=== PATIENT | female | born 1965 | race African-American/Black ===

== ENCOUNTER → 2017-06-20 | Outpatient (CLI) | payer MEDICAID ==
[~2017-06-20] MED LIST: ZITHROMAX PO
--- NOTE | ~2017-06-20 | EKG ---
PATIENT: RENY MONTALVO UNIT #: [id number] Ventricular Rate: 54 BPM Atrial Rate: 54 BPM P-R Interval: 144 ms QRS Duration: 90 ms Q-T Interval: 398 ms QTC Calculation(Bezet): 377 ms P [place]: 62 degrees Calculated R [place]: 48 degrees Calculated T [place]: 28 degrees Diagnosis Line: Sinus bradycardia Diagnosis Line: Possible Left atrial enlargement Diagnosis Line: RSR' or QR pattern in V1 suggests right Diagnosis Line: ventricular conduction delay Diagnosis Line: Borderline ECG Diagnosis Line: No previous ECGs available Diagnosis Line: Confirmed by BRITTANI PAYNE MD ([id number]) on Diagnosis Line: 06/21/2017 5:04:59 PM INTERPRETING MD: ELMER MCKEON
[2017-06-20 12:26] LABS: MEAN CELL VOLUME 87.2 FL (83-96); MEAN CORPUSCULAR HEMOGLOBIN 30.6 PG (28-34); MEAN CORPUSCULAR HGB CONC 35.1 g/dL (30-36); MEAN PLATELET VOLUME 8.1 FL (6.5-11.5); RED BLOOD COUNT 4.24 X10e (3.90-5.30); RED CELL DISTRIBUTION WIDTH 12.9 % (11.0-15.5); WHITE BLOOD COUNT 5.3 X10e3 (4.0-10.5)
[2017-06-20 13:07] LABS: ALBUMIN SERUM 4.4 g/dL (3.5-5.0); BILIRUBIN,TOTAL 1.5 mg/dL (0.2-2.0); BUN/CREATININE RATIO 21.25; CALCIUM SERUM 9.2 mg/dL (8.4-10.2); CREATININE SERUM 0.8 mg/dL (0.6-1.4); GLOM FILT RATE Estimated 99.7 mL/min (>60); PROTEIN TOTAL SERUM 8.4 g/dL (6.0-8.3)
== END | disposition home or self-care (01) ==
LOC: CLAB 11:52
PROVIDERS: Specialist
DX: J34.89 Other specified disorders of nose and nasal sinuses (principal)
CPT/HCPCS: 36415; 80053; 85027; 93005